=== PATIENT | female | born 1955 | race Hispanic/Latino ===

== ENCOUNTER → 2017-04-21 | Outpatient (CLI) | payer BC ==
--- NOTE | 2017-04-21 09:09 | Diagnostic Imaging Report ---
EXAM: DXA BONE DENSITY INDICATIONS: OSTEOPENIA COMPARISON: September 22, 2015. FINDINGS: Proximal left femur bone mineral density (BMD) (g/cm2):0.756 Femur T-score (standard deviation relative to young adult mean BMD): -1.5 Femur Z-score (standard deviation relative to age-matched control group):-0.5 Lumbar bone mineral density (BMD) (g/cm2):0.921 Lumbar T-score (standard deviation relative to young adult mean BMD): -1.1 Lumbar Z-score (standard deviation relative to age-matched control group):0.4 There is no statistically significant interval change in bone mineral density relative to September 2015. CONCLUSION: WHO bone mineral classification: Low bone mass (osteopenia). 10 year major osteoporotic fracture risk is 7.9%, with a hip fracture risk of 0.6%. World Health Organization Classification: *The Z-score is provided for informational purposes. A change of BMD +/- >4% is considered statistically significant. RECOMMENDATIONS: Normal \T\ Low bone mass: Calcium supplementation, daily multiple vitamins, and adequate exercise as preventive measures against osteoporosis. Osteoporosis \T\ Severe Osteoporosis:In addition to the above, pharmacologic therapy Dictated by: Jamal Simmons M.D. on 04/21/2017 at 9:18 Electronically approved by: Jamal Simmons M.D. on 04/21/2017 at 9:18
== END ==
LOC: DX 07:46
PROVIDERS: ATTEND Obstetrics & Gynecology
DX: Z12.31 Encounter for screening mammogram for malignant neoplasm of breast (principal); M85.80 Other specified disorders of bone density and structure, unspecified site
CPT/HCPCS: 77080; G0202